=== PATIENT | male | born 1965 | race Caucasian/White ===

== ENCOUNTER 2023-07-09 12:31 | Observation (INO) | payer BC ==
--- OUTSIDE RECORDS SUMMARY | 2023-07-09 12:33 | XMS REPORT | Continuity of Care Document ---
Author Name Unknown Address [address] [facility] [address] [place] [address] [facility] Address [address] [facility] [address] [place] [address] Care Team Providers Care Force Variation Equipment Tender Name Role Phone Perico Dan Attending Clinician Unavailable Perico Dan Admitting Clinician Unavailable Payers Payer Name Policy Type Policy Number Effective Date Expirati on Date Source Allergies, Adverse Reactions, Alerts Allergy Name Allergy Type Status Severity Reaction(s) Onset Date Inactive Date Treating Clinician Comments Source No Known Allergie s DA Active U 12-02 00:00: 00 [facility] Procedures Procedure Date / Time Performed Performing Clinicia n Source [id number] 2022-12-04 00:00:00 [facility] [id number] 2022-12-04 00:00:00 [facility] Encounters Start Date/Time End Date/Time Encounter Type Admission Type Attending Clinicians Care Facility Care Department Encounter ID Source 2022-12-04 09:45:00 2022-12-05 09:32:00 Inpatient EL Perico Dan [facility] MEDI.01 [id number] [facility] Results Test Description Test Time Test Comments Results Result Co mments Source CBC W/AUTO [id number] 04:03:00* Test Item Value Reference Range Interpretation Comme nts WHITE BLOOD CELL (test code = WBC) 6.9 K/mm3 3.5-11.0 N RED BLOOD CELL (test code = RBC) 4.79 M/mm3 4.70-6.10 N HEMOGLOBIN (test code = HGB) 13.9 G/DL 12.3-15.9 N HEMATOCRIT (test code = HCT) 42.3 % 35.8-46.7 N MEAN CELL VOLUME (test code = MCV) 88.3 Fl 86.3-98.9 N MEAN CELL HGB (test code = MCH) 29.0 pg 28.9-34.4 N MEAN CELL HGB CONCETRATION (test code = MCHC) 32.9 G/DL 32.1-34.5 N RED CELL DISTRIBUTION WIDTH (test code = RDW) 13.2 SD 11.5-14.5 N PLATELET COUNT (test code = PLT) 193 K/mm3 150-450 N MEAN PLATELET VOLUME (test c ode = MPV) 11.30 fL 7.0-9.6 H NEUTROPHIL % (test code = NT%) 60.6 % 40-76 IMMATURE GRANULOCYTE % (test code = IG%) 0.3 % 0.0-5.0 N LYMPHOCYTE % (test code = LY%) 20.6 % 20.5-51.1 N MONOCYTE % (test code = MO%) 11.2 % 1.7-9.3 H EOSINOPHIL % (test code = EO%) 6.7 % 0.0-6.0 H BASOPHIL % (test code = BA%) 0.6 % 0.0-2.0 N NUCLEATED RBC % (test code = NRBC%) 0.0 /100WBC% 0.0-1.0 N NEUTROPHIL # (test code = NT#) 4.2 K/mm3 1.8-7.6 N IMMATURE GRANULOCYTE # (test code = IG#) 0.02 x10 3/uL 0.00-0.03 N LYMPHOCYTE # (test code = LY#) 1.4 K/mm3 0.6-3.0 N MONOCYTE # (test code = MO#) 0.8 K/mm3 0.2-1.5 N EOSINOPHIL # (test code = EO#) 0.5 K/mm3 0.0-0.4 H BASOPHIL # (test code = BA#) 0.0 K/mm3 0.0-0.2 N NUCLEATED RBC # (test code = NRBC#) 0.0 K/mm3 0.00-0.01 N MANUAL DIFF REQUIRED (test c ode = MDIFF) NO DIFF/SCN CRITERIA - XR CHEST 1 [id number] 01:51:00 [facility] 1965 Sex: M Name: HEAVEN OLIVERA [facility] : 1965 Age/S: 57 / M [id number] [address] [place] Unit #: [id number] Loc: [place] [address] Phys: Ira Huggins MD Cardiology Acct: [id number] Dis Date: Status: ADM IN PHONE #: [phone] Exam Date: 12/05/20225 FAX #: Reason: Post implanted device EXAMS: CPT: [id number] XR CHEST 1 V [id number] Fluoro Time: DAP (Gy m2): Air Kerma (mGy): EXAMINATION: - XR CHEST 1 V CLINICALINDICATION: Male, 57 years year old with Post implanted device COMPARISON: Chest December 04, 2022 FINDINGS: Single view(s) of the chest submitted. Support Devices: Left-sided single-lead defibrillator is present. Heart: Cardiac silhouette is normal in size. Mediastinum: Mediastinal contours are normal. Lungs: Pulmonary vessels are normal in size. Lungs are well aerated and clear. Pleura: No pleural effusion is identified. No pneumothorax is present. Bones: Visualized skeleton is normal. IMPRESSION: No acute cardiopulmonary disease. at 0151 Reported and signed by: Vignesh Pimentel M.D. CC: Ira Younger Cardiology Dre ARREAGA PAGE 1 Signed Report Name: HEAVEN OLIVERA [place] : 1965 Age/S: 57 / M [id number] [address] [place] Unit #:[id number] Loc: [place] [address] Phys: Ira Huggins MD Cardiology Acct: [id number] Dis Date:Status: ADM IN PHONE #: [phone] Exam Date: 12/05/2022 0025 FAX #: Reason: Post implanted device EXAMS: CPT: [id number] XR CHEST 1 V 47776 Fluoro Time: DAP (Gy m2): Air Kerma (mGy): (Continued) Technologist: Joya Celestin Trnmeb Date/Time: 12/05/2022 (015) [id number] Orig Print D/T: S: 12/05/2022 (0154) PAGE 2 Signed Report- XR CHEST 1 [id number] 14:40:00 [facility] 1965 Sex: M Name: HEAVEN OLIVEAR [place] : 1965 Age/S: 57 / M [address] [address] [place] [place] Unit #: [id number] Loc: [place] [address] Phys: Ira Huggins MD Cardiology Acct: [id number] Dis Date: Status: ADM IN PHONE#: [phone] Exam Date: 12/04/2022 1418 FAX #: Reason: Post implanted device EXAMS: CPT: [id number] XR CHEST 1 V 22882 Fluoro Time: DAP (Gy m2): Air Kerma (mGy): EXAM: - XR CHEST 1 V INDICATION: Post implanted device Technique: Frontal view Location: T18 Findings and impression: The patient is post placement of left pacemaker. The leads/wire projects at the right ventricle. No pneumothorax seen. No pleural effusion seen. Cardiomediastinal silhouette appears unremarkable. Osseous structures appear unremarkable. at 1440 Reported andsigned by: Chucho Rubio M.D. CC: Ira Younger Cardiology Dre ARREAGA PAGE 1 Signed Report Name: GERARDO OLIVERA : 1965 Age/S: 57 / M [address] [address] [place] [place] Unit #: [id number] Loc: [id number] Phys: Ira Huggins MD Cardiology Acct: [id number] Dis Date: Status: ADM IN PHONE #: Exam Date: 12/04/2022 1416 FAX #: Reason: Post implanted device EXAMS: CPT: [id number] XR CHEST 1 V 30786 Fluoro Time: DAP (Gy m2): Air Kerma (mGy): (Continued) Technologist: Cate Mccain RT(R) Trnscb Date/Time: 12/04/2022 (1440) [id number] Orig Print D/T: S: 12/04/2022 (2955) PAGE 2 Signed Report PROTHROMBIN [id number] 11:39:00* Test Item Value Reference Range Interpretation Comme nts PT PATIENT (test code = PTP) 12.5 SECONDS 9.3-12.9 N INTERNATIONAL NORMAL RATIO (test code = INR) 1.12 INR Unit 0.8-1.2 N TARGET INR BY INDICATION Indication INR1. Prophylaxis of venous thrombosis 2.0 - 3.0 (orthopedic surgery), Prophylaxis of venous thrombosis (other than high-risk surgery), Treatment of Deep Vein Thrombosis/Pulmonary Embolism, Prevention of systemic embolism - Tissue heart valves, Acute Myocardial Infarction (to prevent systemic embolism), Valvular heart disease, Acute Myocardial Infarction (to prevent systemic embolism), Valvular heart disease, Atrial Fibrillation, Bileaflet mechanical valve in aortic position.2. Mechanical prosthetic valves (high risk), 2.5 - 3.5 Presence of Lupus Anticoagulant or Antiphospholipid Antibodies, Prevention of systemic embolism - Acute Myocardial Infarction (to prevent recurrent infarct). THROMBOPLASTIN TIME [id number] 11:39:00* Test Item Value Reference Range Interpretation Comme nts THROMBOPLASTIN TIME PARTIAL (test code = PTT) 35.2 SECONDS 26-35 H CBC W/AUTO [id number] 11:17:00* Test Item Value Reference Range Interpretation Comme nts WHITE BLOOD CELL (test code = WBC) 4.9 K/mm3 3.5-11.0 N RED BLOOD CELL (test code = RBC) 5.29 M/mm3 4.70-6.10 N HEMOGLOBIN (test code = HGB) 15.2 G/DL 12.3-15.9 N HEMATOCRIT (test code = HCT) 45.0 % 35.8-46.7 N MEAN CELL VOLUME (test code = MCV) 85.1 Fl 86.3-98.9 L MEAN CELL HGB (test code = MCH) 28.7 pg 28.9-34.4 L MEAN CELL HGB CONCETRATION (test code = MCHC) 33.8 G/DL 32.1-34.5 N RED CELL DISTRIBUTION WIDTH (test code = RDW) 13.2 SD 11.5-14.5 N PLATELET COUNT (test code = PLT) 224 K/mm3 150-450 N MEAN PLATELET VOLUME (test c ode = MPV) 11.80 fL 7.0-9.6 H NEUTROPHIL % (test code = NT%) 51.7 % 40-76 N IMMATURE GRANULOCYTE % (test code = IG%) 0.4 % 0.0-5.0 N LYMPHOCYTE % (test code = LY%) 25.6 % 20.5-51.1 N MONOCYTE % (test code = MO%) 12.6 % 1.7-9.3 H EOSINOPHIL % (test code = EO%) 8.9 % 0.0-6.0 H BASOPHIL % (test code = BA%) 0.8 % 0.0-2.0 N NUCLEATED RBC % (test code = NRBC%) 0.0 /100WBC% 0.0-1.0 N NEUTROPHIL # (test code = NT#) 2.5 K/mm3 1.8-7.6 N IMMATURE GRANULOCYTE # (test code = IG#) 0.02 x10 3/uL 0.00-0.03 N LYMPHOCYTE # (test code = LY#) 1.3 K/mm3 0.6-3.0 N MONOCYTE # (test code = MO#) 0.6 K/mm3 0.2-1.5 N EOSINOPHIL # (test code = EO#) 0.4 K/mm3 0.0-0.4 N BASOPHIL # (test code = BA#) 0.0 K/mm3 0.0-0.2 N NUCLEATED RBC # (test code = NRBC#) 0.0 K/mm3 0.00-0.01 N MANUAL DIFF REQUIRED (test c ode = MDIFF) NO DIFF/SCN CRITERIA COMPREHENSIVE METABOLIC [id number] 10:28:00* Test Item Value Reference Range Interpretation Comme nts SODIUM (test code = NA) 139 mmol/L 134-147 N POTASSIUM (test code = K) 4.0 mmol/L 3.4-5.0 N CHLORIDE (test code = CL) 112 mmol/L 100-108 H CARBON DIOXIDE (test code = CO2) 25 mmol/L 21-32 N ANION GAP (test code = GAP) 2.0 GAP calc 4.0-15.0 L GLUCOSE (test code = GLU) 94 MG/DL 70-110 N BLOOD UREA NITROGEN (test code = BUN) 23 MG/DL 7-18 H GLOMERULAR FILTRATION RATE (test code = GFR) >=60 max estimate estGFR >60 The Glomerular Filtration Rate is a calculated parameterbased on serum Creatinine, patient age and sex. GFR valuesless than 60 mL/min/1.73 square meters are indicative ofChronic Kidney Disease. Values less than 15 mL/min/1.73square meters indicate Kidney failure. The calculation forGFR is based on the CKD-EPI (202) calculation. This formulais race indifferent and is the recommended formula for GFRby the National Kidney Foundation for Adults.The GFR will not calculate if the sex is unknown or if thepatient's age is <18 years. CREATININE (test code = CREAT) 1.1 MG/DL 0.8-1.3 N TOTAL PROTEIN (test code = PROT) 7.2 G/DL 6.4-8.2 N ALBUMIN (test code = ALB) 3.7 G/DL 3.4-5.0 N GLOBULIN (test code = GLOB) 3.5 GM/dL ALBUMIN/GLOBULIN RATIO (test code = A/G) 1.1 RATIO 1.2-2.2 L CALCIUM (test code = CA) 8.8 MG/DL 8.5-10.1 N BILIRUBIN TOTAL (test code = BILT) 0.70 MG/DL 0.2-1.2 N SGOT/AST (test code = AST) 18 Unit/L 15-37 N SGPT/ALT (test code = ALT) 25 Unit/L 12-78 N ALKALINE PHOSPHATASE TOTAL (test code = ALKP) 49 Unit/L 50-136 L LIPID PROFILE (CORONARY RISK)2022-12-04 10:28:00* Test Item Value Reference Range Interpretation Comme nts TRIGLYCERIDES (test code = TRIG) 91 MG/DL 0-150 N CHOLESTEROL (test code = CHOL) 148 MG/DL 133-200 N CHOLESTEROL/HDL RATIO (test code = CHOLHDL) 2.96 RATIO See_Comment RISK ASSOCIATED WITH CHOL/HDL RATIOS: RISK MALE FEMALE1/2 AVERAGE 3.43 3.27AVERAGE 4.97 4.442X AVERAGE 9.55 7.053X AVERAGE 23.39 11.04 NOTE THAT THE REFERENCE VALUE IS RELATED TO RISK LEVELS ASRECOMMENDED BY THE [facility]ATIONAL [facility]G, AND [facility]. [Automated message] The system which generated this result transmitted reference range: 0-. The reference range was not used to interpret this result as normal/abnormal. HDL CHOLESTEROL (test code = HDL) 50 MG/DL 40-59 N NON-HDL CHOLESTEROL (test code = NHDL) 98 mg/dL <130 LIPOPROTEIN LDL (test code = LDL) 81 MG/DL 0-129 N <100 QCFTZEO35 0 - 129 NEAR OPTIMAL/ABOVE IQENFKD667 - 159 HMKOGILNHN937 - 189 HIGH>OR= 190 VERY HIGHNOTE THAT GUIDELINES ARE PROVIDED BY NATIONAL CHOLESTEROLEDUCATION PROGRAM ADULT TREATMENT PANEL III LDL/HDL (test code = LDL/HDL) 1.62 Ratio See_Comment N [Automated messa ge] The system which generated this result transmitted reference range: 1.48-3.22 Avg. The reference range was not used to interpret this result as normal/abnormal. [id number] 10:28:00* Test Item Value Reference Range Interpretation Comme nts MAGNESIUM (test code = MAG) 2.0 MG/DL 1.8-2.4 N Notes Date/Time Note Provider Source 2022-12-05 08:26:00 [id number]/ [id number]+NDnA2w89+KaL1EmCoA6OxG gDFiV8NogvtmtJVHuAkUSQR6cC+6890-64-11D08:26:00 [facility] ([facility])Hospitalist Discharge SummaryREPORT#:[id number] REPORT STATUS: SignedDATE:12/05/22 TIME:825 PATIENT: HEAVEN OLIVERA UNIT #: [id number]#: [id number] [address] AGE: 57 SEX: M ATTEND: Perico Dan [facility] AUTHOR: Perico Dan MD * ALL edits or amendments must be made on the electronic/computer document * General InformationDischarge date: 12/05/22Discharge diagnosis:Sick sinus syndromeChronic atrial fibrillation with slow ventricular responseSymptomatic bradycardiaStatus post pacemaker placementHyperlipidemiaHospital course:57-year-old male with past medical history of chronic atrial fibrillation with slow ventricular response, symptomatic bradycardia, hyperlipidemia, morbid obesity was admitted for symptomatic sick sinus syndrome and chronic atrial fibrillation and underwent pacemaker placement by Dr. Huggins and was admitted for further managementPatient denies any chest pain or shortness of breathDenies any fever or chills Sick sinus syndromeSymptomatic bradycardiaChronic atrial fibrillation with slow ventricular responseStatus post pacemaker placementAppreciated from cardiologyMonitor on telemetryElectrolytes monitored and replace accordingly HyperlipidemiaContinue statin ObesityAdvise lifestyle modification Patient responded well to the treatment and is being discharged home today in a stable condition with and advised to follow-up with PCP in 1 week and also with cardiology in 1 to 2 weeks Med Rec Med RecDischarge meds:Continue taking these medications:RIVAROXABAN (XARELTO) 20 MG TAB 20 MILLIGRAM ORAL DAILY. FENOFIBRATE (FENOFIBRATE) 145 MG TAB 145 MILLIGRAM ORAL DAILY. PRAVASTATIN (PRAVACHOL) 40 MG TAB 40 MILLIGRAM ORAL DAILY. MULTIVITAMIN (MULTIPLE VITAMIN) 1 TAB TAB 1 TABLET ORAL DAILY. OMEGA-3 FATTY ACIDS (FISH OIL) 1,000 MG CAP 1,000 MILLIGRAM ORAL DAILY. ObjectiveVS/I OLast Documented: Result Date Time Pulse Ox 96 12/05 0700 B/P 122/79 12/05 0700 B/P Mean 93 12/05 0700 Temp 97.8 12/05 0700 Pulse 55 12/05 0700 Resp 14 12/05 0700 O2 Delivery Room air 12/04 1552 Physical ExamGeneral appearance: alert, awake, orientedHEENT : normocephalic ,AtraumaticEyes: Eyes normal inspection.ENT: Dry mucous membranes present.Neck: Normal inspection. Neck supple.CVS: Normal heart rate and rhythm. Heart sounds normal.Respiratory: No respiratory distress. Breath sounds normal.Abdomen: Soft and nontender.Genitourinary: no bladder distentionBack: Normal inspection.Skin: Skin warm. Normal skin color. No rash.Extremities: No lower extremity edema.Neuro: Oriented X 3. No motor deficitNo generalized lymph adenopathyPsych normal affect Discharge Instructions PCPDischarge to: Home/Self CareAdditional Discharge Routines: PCP Follow-UpDiet: Resume Home Diet/FeedsDischarge management: greater than 30 mins Follow-up AppointmentsPCP follow-up: PCP: Ira Huggins MD Cardiology PCP follow up timeframe: In 1-2 weeks at 1423 RPT #: [id number] OF REPORT DSDischarge glhynjp0353-05-68G35:26:00L.[id number] ailable for patient kcxrSJJYVIWZKNKALL7829-81-95K39:23:14 [facility] 2022-12-05 07:49:00 [id number] o6iBwXjcJP1Mg3JcwB9AE7gD71/We 6wBs/Oid9tQaM8nDC3/ACA4GNvU7184-66-92Q91:49:45292 5-0006 [facility] [address] [place] [address] PATIENT NAME: HEAVEN OLIVERA ADMIT DATE: 12/04/22ACCOUNT NO: [id number] ROOM NO: [facility] AGE: 57 REPORT TYPE: eELECTROCARDIOGRAM SEX: M ADMITTING PHYSICIAN: Ira Huggins MDATTENDING PHYSICIAN: Ira Huggins MD Order:[id number] Reason : S/P PPI, AFib Test Date/Time Stamp:TueDec 05 2022 07:49:11Blood Pressure : / mmHGVent. Rate : 061 BPM Atrial Rate : 258 BPM P-R Int : 000 ms QRS Dur : 090 ms QT Int : 396 ms P-R-T Axes : 000 003 018 degrees QTc Int : 398 ms Atrial fibrillation with occasional ventricular-paced complexesAbnormal ECGWhen compared with ECG of 04-DEC-2022 14:12,premature ventricular complexes are no longer presentVent. rate has increased BY 10 BPMConfirmed by IRA HUGGINS ([id number]) on 12/05/2022 10:23:37 AM Referred By: Ira Huggins Confirmed by:IRA HUGGINS at 1023 PATIENT NAME: HEAVEN OLIVERA .[id number] AVAvailable for patient amtgVDDZQAHGFVIVUR9916-68-78G75:24:15 [facility] 2022-12-04 18:22:00 [id number] jw/Avelina/5ikzo/hmXREBPAcz5SNMas 3u0lAtsvuWdyaN3ejYb16zCNh3L8227-21-31B24:22:00 [facility] ([facility])Hospitalist History PhysicalREPORT#:[id number] REPORT STATUS: SignedDATE:12/04/22 TIME:1821 PATIENT: HEAVEN OLIVERA UNIT #: [id number]#: [id number] ROOM[facility]BED: [facility]8-1DOB: [birth year] AGE: 57 SEX: M ATTEND: Perico Dan AUTHOR: Perico Dan MD * ALL edits or amendments must be made on the electronic/computer document * History of Present Illness HPIChief complaint:S/p Pacemaker placememnt by Dr HugginsHPRoger:57-year-old male with past medical history of chronic atrial fibrillation with slow ventricular response, symptomatic bradycardia, hyperlipidemia, morbid obesity was admitted for symptomatic sick sinus syndrome and chronic atrial fibrillation and underwent pacemaker placement by Dr. Huggins and was admitted for further managementPatient denies any chest pain or shortness of breathDenies any fever or chills History Past Medical Surgical HxAdditional medical history:Chronic atrial fibrillation, bradycardia, sick sinus syndromeAdditional surgical history:Status post pacemaker placement Family HistoryFamily history:Reports: Hypertension. Social HistorySmoking status for patients 13 years old or older: Never Smoker Medication/Allergy-Vaccine HxMedications:Home Medications:RIVAROXABAN (XARELTO) 20 MG PO DAILY FENOFIBRATE 145 MG PO DAILY PRAVASTATIN (PRAVACHOL) 40 MG PO DAILY MULTIVITAMIN (MULTIPLE VITAMIN) 1 TAB PO DAILY OMEGA-3 FATTY ACIDS (FISH OIL) 1,000 MG PO DAILY Allergies:Coded Allergies:No Known Allergies (12/02/22) Review of Systems Free Text ROS NotesFree Text ROS Notes:Constitutional:Reports: generalized weakness. Skin:Denies: rash. Allergy/Immun:Denies: rhinorrhea, sneezing. Eyes:Denies: visual loss/blurred. ENT:Denies: earache, nasal congestion. Respiratory:Denies: non productive cough. Cardiovascular:Denies: chest pain, palpitations. GI:Denies: diarrhea, nausea. :Denies: dysuria. Musculoskeletal:Reports: arthritis. Denies: extremity pain. Heme:Denies: bleeding. Endocrine:Denies: polydipsia. Neuro:Reports: dizziness, gait problem, lightheaded, spinning sensation. Psych:Reports: anxiety. All systems rev neg: except as noted OBJECTIVEVS/I O:Vital Signs Date Temp Pulse Resp B/P B/P Mean Pulse Ox FiO2 12/04 97.5-97.7 48-55 14-20 126-143/74-83 97.1-101.4 94-100 Last Documented: Result Date Time Pulse Ox 100 12/04 1552 B/P 126/83 12/04 1552 B/P Mean 97.1 12/04 1552 O2 Delivery Room air 12/04 1552 Temp 97.7 12/04 155 Pulse 50 12/04 1552 Resp 14 12/04 155 Patient Weight and BMI Weight (kg): 130.000 BMI: 35.8 Medications:Active Meds + DC'd Last 24 HrsPravastatin Sodium (PRAVACHOL) 40 MG DAILY 1700 PO Acetaminophen (TYLENOL) 650 MG Q4H PRN PRN PO Cefazolin Sodium (KEFZOL) 1 GM Q8H IV Sterile Water (WATER FOR INJECTION) 10 MLHydrocodone Bitart/Acetaminophen (NORCO 5/325) 1 TAB Q4H PRN PRN PO Ondansetron HCl (ZOFRAN ODT) 4 MG Q8H PRN PRN PO Sodium Chloride (SODIUM CHLORIDE) SALINE FLUSH ASDIR PRN IV Midazolam HCl (VERSED) 0 .STK-MED ONE .ROUTE (DC) Cefazolin Sodium (KEFZOL) 0 .STK-MED ONE .ROUTE (DC) Gentamicin Sulfate (GARAMYCIN) 0 .STK-MED ONE .ROUTE (DC) Lidocaine HCl (lidocaine HCL) 0 .STK-MED ONE .ROUTE (DC) Midazolam HCl (VERSED) 0 .STK-MED ONE .ROUTE (DC) Fentanyl Citrate (SUBLIMAZE) 0 .STK-MED ONE .ROUTE (DC) Diazepam (VALIUM) 5 MG ONCALL PO (CKD) Diphenhydramine HCl (BENADRYL) 25 MG ONCALL PO (CKD) Sodium Chloride (0.9% Sodium Chloride) 1,000 ML ASDIR IV ResultsFindings/Data:Laboratory Tests: 12/04 0907 Chemistry Sodium (134 - 147 mmol/L) 139 Potassium (3.4 - 5.0 mmol/L) 4.0 Chloride (100 - 108 mmol/L) 112 H Carbon Dioxide (21 - 32 mmol/L) 25 Anion Gap (4.0 - 15.0 GAP calc) 2.0 L BUN (7 - 18 MG/DL) 23 H Creatinine (0.8 - 1.3 MG/DL) 1.1 Glomerular Filtr Rate (>60 estGFR) >=60 max estimate Glucose (70 - 110 MG/DL) 94 Calcium (8.5 - 10.1 MG/DL) 8.8 Magnesium (1.8 - 2.4 MG/DL) 2.0 Total Bilirubin (0.2 - 1.2 MG/DL) 0.70 AST (15 - 37 Unit/L) 18 ALT (12 - 78 Unit/L) 25 Total Alk Phosphatase (50 - 136 Unit/L) 49 L Total Protein (6.4 - 8.2 G/DL) 7.2 Albumin (3.4 - 5.0 G/DL) 3.7 Globulin (GM/dL) 3.5 Albumin/Globulin Ratio (1.2 - 2.2 RATIO) 1.1 L Triglycerides (0 - 150 MG/DL) 91 Cholesterol (133 - 200 MG/DL) 148 LDL Cholesterol Measurd (0 - 129 MG/DL) 81 Non-HDL Cholesterol (<130 mg/dL) 98 HDL Cholesterol (40 - 59 MG/DL) 50 LDL/HDL Ratio (1.48 - 3.22 Avg Ratio) 1.62 Cholesterol/HDL Ratio (0 RATIO) 2.96 Coagulation INR (0.8 - 1.2 INR Unit) 1.12 PTT (Nelson) (26 - 35 SECONDS) 35.2 H PT Patient/Control Mix (9.3 - 12.9 SECONDS) 12.5 Hematology WBC (3.5 - 11.0 K/mm3) 4.9 RBC (4.70 - 6.10 M/mm3) 5.29 Hgb (12.3 - 15.9 G/DL) 15.2 Hct (35.8 - 46.7 %) 45.0 MCV (86.3 - 98.9 Fl) 85.1 L MCH (28.9 - 34.4 pg) 28.7 L MCHC (32.1 - 34.5 G/DL) 33.8 RDW (11.5 - 14.5 SD) 13.2 Plt Count (150 - 450 K/mm3) 224 MPV (7.0 - 9.6 fL) 11.80 H Neut % (Auto) (40 - 76 %) 51.7 Lymph % (Auto) (20.5 - 51.1 %) 25.6 Putnam % (Auto) (1.7 - 9.3 %) 12.6 H Eos % (Auto) (0.0 - 6.0 %) 8.9 H Baso % (Auto) (0.0 - 2.0 %) 0.8 Neut # (Auto) (1.8 - 7.6 K/mm3) 2.5 Lymph # (Auto) (0.6 - 3.0 K/mm3) 1.3 Putnam # (Auto) (0.2 - 1.5 K/mm3) 0.6 Eos # (Auto) (0.0 - 0.4 K/mm3) 0.4 Baso # (Auto) (0.0 - 0.2 K/mm3) 0.0 Abs Immat Gran (auto) (0.00 - 0.03 x10 3/uL) 0.02 Add Manual Diff (CRITERIA DIFF/SCN) NO Immature Gran % (0.0 - 5.0 %) 0.4 Nucleated RBC % (0.0 - 1.0 /100WBC%) 0.0 Laboratory Tests 12/04/22 0907:[Embedded Image Not Available] Radiology data:Recent Impressions:RADIOLOGY - XR CHEST 1 V 12/04 1415 Report Impression - Status: SIGNED Entered: 12/04/2022 1444 impression:The patient is post placement of left pacemaker. The leads/wireprojects at the right ventricle. No pneumothorax seen. No pleuraleffusion seen. Cardiomediastinal silhouette appears unremarkable.Osseous structures appear unremarkable.Impression By: SenthilAHJenelle Rubio M.D. Free Text PE NotesFree Text PE Notes:Physical ExamGeneral appearance: alert, awake, orientedHEENT : normocephalic ,AtraumaticEyes: Eyes normal inspection.ENT: Dry mucous membranes present.Neck: Normal inspection. Neck supple.CVS: Normal heart rate and rhythm. Heart sounds normal.Respiratory: No respiratory distress. Breath sounds normal.Abdomen: Soft and nontender.Genitourinary: no bladder distentionBack: Normal inspection.Skin: Skin warm. Normal skin color. No rash.Extremities: No lower extremity edema.Neuro: Oriented X 3. No motor deficitNo generalized lymph adenopathyPsych normal affect Diagnosis, Assessment PlanFree Text A P:Sick sinus syndromeSymptomatic bradycardiaChronic atrial fibrillation with slow ventricular responseStatus post pacemaker placementAppreciated from cardiologyMonitor on telemetryElectrolytes monitored and replace accordingly HyperlipidemiaContinue statin ObesityAdvise lifestyle modification GI/DVT prophylaxisAdvanced directive full code at 1421 RPT #: [id number] OF REPORT HPHistory and physical fdmhsihwgil1552-82-92J26:22:00L.[id number] AVAvailable for patient qztwAICEQKWFMXJSSV1797-07-40J75:21:33 [facility] 2022-12-04 14:12:00 [id number] Iqv9qUaXZzVLziN734yGSRYYBNjOw uQhXKIfQ3ATPR5q7fPm6YjYijgy3902-86-32S25:12:43076 4-0012 [facility] [id number] [place] [address] PATIENT NAME: HEAVEN OLIVERA ADMIT DATE: 12/04/22ACCOUNT NO: [id number] ROOM NO: [facility] AGE: 57 REPORT TYPE: eELECTROCARDIOGRAM SEX: M ADMITTING PHYSICIAN: Ira Huggins MDATTENDING PHYSICIAN: Ira Huggins MD Order:[id number] Reason : s/p pacemaker Test Date/Time Stamp:TueDec 04 2022 14:12:29Blood Pressure : / mmHGVent. Rate : 051 BPM Atrial Rate : 049 BPM P-R Int : 000 ms QRS Dur : 200 ms QT Int : 532 ms P-R-T Axes : 000 -72 061 degrees QTc Int : 490 ms Ventricular-paced rhythm with occasional premature ventricular complexesAbnormal ECGWhen compared with ECG of 04-DEC-2022 09:31,Electronic ventricular pacemaker has replaced Atrial fibrillationConfirmed by IRA HUGGINS ([id number]) on 12/04/2022 3:04:14 PM Referred By: Ira Huggins Confirmed by:IRA HUGGINS at 1504 PATIENT NAME: HEAVEN OLIVERA .[id number] AVAvailable for patient [id number]:04:33 [facility] 2022-12-04 13:58:00 [id number]//[id number] 4-0026 [facility] [address] [place] [address] PATIENT NAME: HEAVEN OLIVERA ADMIT DATE: 12/04/22ACCOUNT NO: [id number] ROOM NO: [facility] AGE: 57 REPORT TYPE: OPERATIVE REPORT SEX: M ADMITTING PHYSICIAN: Ira Huggins MD CardiologyATTENDING PHYSICIAN: Ira Huggins MD Cardiology OPERATION DATE: 12/04/2022 DOFFER: Ira Huggins MD PREOPERATIVE DIAGNOSIS: 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 TITLE OF PROCEDURE: Single-chamber permanent pacemaker, MRI compatible pacemaker. ESTIMATED BLOOD LOSS: Minimal. COMPLICATIONS: None. CONTRAST: None. ANESTHESIA: Conscious sedation with Versed and fentanyl, 1% lidocaine for localanesthesia. FINAL DIAGNOSIS: Successful single-chamber MRI compatible permanent pacemaker implantation. DISPOSITION: Observation overnight. Dictated By: Ira Huggins MD Date Dictated: 12/04/2022 13:58:10Date Transcribed: 12/04/2022 17:56:14SFD/TULShwetab #: [id number] ID: [id number] by Ira Huggins MD On 12/05/2022 07:30:34 AM PATIENT NAME: HEAVEN OLIVERA at 0730 PATIENT NAME: HEAVEN OLIVERA [id number]:56:00L.[id number] lable for patient [id number]:31:16 [facility] 2022-12-04 09:31:00 [id number]/[id number] 4-[address] [address] PATIENT NAME: HEAVEN OLIVERA ADMIT DATE: 12/04/22ACCOUNT NO: [id number] ROOM NO: [facility] AGE: 57 REPORT TYPE: eELECTROCARDIOGRAM SEX: M ADMITTING PHYSICIAN: Ira Huggins MDATTENDING PHYSICIAN: Ira Huggins MD Order:[id number] Reason : pre op Test Date/Time Stamp:TueDec 04 2022 09:31:54Blood Pressure : / mmHGVent. Rate : 043 BPM Atrial Rate : 000 BPM P-R Int : 000 ms QRS Dur : 082 ms QT Int : 436 ms P-R-T Axes : 000 -01 004 degrees QTc Int : 368 ms Atrial fibrillation with slow ventricular responseInferior infarct , age undeterminedAbnormal ECGNo previous ECGs availableConfirmed by IRA HUGGINS ([id number]) on 12/04/2022 11:19:57 AM Referred By: Ira Huggins Confirmed by:IRA HUGGINS at 1119 PATIENT NAME: HEAVEN OLIVERA .[id number] AVAvailable for patient [id number]:20:21 [facility] 2022-12-03 07:26:00 [id number] 3-[address] [address] PATIENT NAME: HEAVEN OLIVERA ADMIT DATE: ACCOUNT NO: [id number] ROOM NO: AGE: 57 REPORT TYPE: PREOP HP REPORT SEX: M ADMITTING PHYSICIAN: ATTENDING PHYSICIAN: Ira Huggins MD Cardiology ADMISSION DATE: 12/04/2022 12:30:00 DOFFER: Ira Huggins MD REASON FOR ADMISSION: Single chamber permanent pacemaker implantation for symptomatic sick sinus syndrome and chronic atrial fibrillation. HISTORY OF PRESENT ILLNESS: Heaven is a 57-year-old patient who I started seeing in my office since 2017. The patient has now chronic atrial fibrillation with slow ventricular response, on no culprit medications. He has significant bradycardia with heart rates going down to 19 on a 24-hour monitor, average heart rate of 58. He had several pauses, the longest being 3.7 seconds. Given the evidence of symptomatic bradycardia with chronic atrial fibrillation and theabove-mentioned pauses, the patient is here for single chamber permanent pacemaker implantation. The patient has no history of active coronary artery disease. He has had echocardiogram showing hypertensive heart disease with mildmitral regurgitation. He had a negative nuclear stress test in 2017. On followup cultures, he has been getting worsening bradycardia on no medications and the pauses have been getting longer and longer. The patient is experiencingworsening fatigue and dyspnea. No dizziness or passing out. No angina or congestive heart failure or TIAs. PAST MEDICAL HISTORY: Remarkable for hyperlipidemia, morbid obesity and allergies. The patient has had negative workup for sleep apnea. PAST SURGICAL HISTORY: He has had wisdom teeth removal and jaw surgery. ALLERGIES: NO KNOWN DRUG ALLERGIES. MEDICATIONS: He has been taking pravastatin 40 mg daily, fenofibrate 145 mg daily, fish oil, Xarelto is on hold and inhalers. SOCIAL HISTORY: There is no history of smoking, alcohol or street drug use. FAMILY HISTORY: Positive for atherosclerotic cardiovascular disease. REVIEW OF SYSTEMS: Remarkable for the above in addition to blurred vision at times, worsening fatigue. No acute GI or symptoms. No TIAs or strokes. PHYSICAL EXAMINATION: PATIENT NAME: HEAVEN OLIVERA GENERAL: Reveals a pleasant, middle-aged male in no acute distress.VITAL SIGNS: Blood pressure 118/83, pulse in the 50s, irregular, respiratory rate 16 and unlabored, temperature afebrile.HEAD: Atraumatic, normocephalic.EYES AND ENT examination within normal for age.NECK: Supple. No jugular venous distention, bruits or lymphadenopathy. Normalupstroke.LUNGS: Clear and resonant.HEART: Irregular rate and rhythm with 2/6 systolic ejection murmur at the left lower sternal border. No gallops. The heart is bradycardic.ABDOMEN: Soft, obese, no tenderness, no organomegaly, no masses or bruits.EXTREMITIES: 2+ distal pulses. No edema, cyanosis or clubbing.NEUROLOGIC: Alert and oriented x3. Examination appears to be nonfocal. LABORATORY DATA: Pending. Noninvasive cardiovascular workup enclosed. IMPRESSION: This is a 57-year-old patient with now chronic atrial fibrillation,symptomatic bradycardia, sick sinus syndrome, long pauses and heart rates going down to 19 at night and pauses up to 3.7 seconds. The patient is here for single chamber permanent pacemaker implantation since there are no reversible causes of his sick-sinus syndrome. The patient is otherwise stable from the cardiac standpoint. The patient's father has had received permanent pacemaker implantation in the past. The patient is right handed, so we will proceed with a single chamber permanent pacemaker implantation on the left side. PLAN: The recommendation is to proceed with the above. The risks and benefits of the planned procedures were discussed in detail with the patient and available family members and he is willing to proceed. Rest as per orders. Dictated By: Ira Huggins MD Date Dictated: 12/03/2022 07:26:40Date Transcribed: 12/03/2022 09:26:04SFD/SYEJob #: [id number] ID: [id number] by Ira Huggins MD On 12/03/2022 05:32:01 PM at 0532 PATIENT NAME: HEAVEN OLIVERA and physical [id number]:26:00L.[id number] VAvailable for patient [id number]:32:53 HCAPM
[2023-07-09 13:20] LABS: Absolute Lymphocytes (CBC) 1.6 K/uL (0.7-4.9); Hematocrit 40.1 % (39.6-49.0); Lymphocytes % 18.7 % (15.3-44.8); MCV 87.3 fL (80-100); Platelets 244 thou/uL (152-406)
[2023-07-09] MEDS ORDERED: MORPHINE 4 MG/ML SYR ONE (13:20)
[2023-07-09] MEDS ORDERED: ONDANSETRON 4 MG/2 ML VIAL ONE (13:20)
[2023-07-09] MEDS ORDERED: LIDOCAINE 1% MPF 5 ML VIAL ONE (13:20)
[2023-07-09 13:32] LABS: Protime INR 1.84
[2023-07-09 13:42] LABS: Albumin 3.1 g/dL (3.4-5.0); Bilirubin Total 0.6 mg/dL (0.2-1.0); Potassium 3.9 mEq/L (3.5-5.1); Protein, Total 7.5 g/dL (6.4-8.2)
--- NOTE | 2023-07-09 14:25 | ER ---
Nurse's Notes [facility] Name: Jayson Pennington Age: 58 yrs Sex: Male : 1965 Arrival Date: 07/09/2023 Time: 12:31 Bed 7 Private MD: Jono Marquis E Diagnosis: Cellulitis left lower extremity;Hematoma to left lower extremity Presentation: 07/09 12:43 Chief complaint: Patient states: "I have an infection to my left leg and the ph antibiotics that I started taking yesterday aren't helping". Coronavirus screen: At this time, the client does not indicate any symptoms associated with coronavirus-19. Ebola Screen: No symptoms or risks identified at this time. Initial Sepsis Screen: Does the patient meet any 2 criteria? No. Patient's initial sepsis screen is negative. Does the patient have a suspected source of infection? No. Patient's initial sepsis screen is negative. Risk Assessment: Do you want to hurt yourself or someone else? Patient reports no desire to harm self or others. Onset of symptoms was July 05, 2023. 12:43 Method Of Arrival: Ambulatory ph 12:43 Acuity: SHEA 3 ph Historical: - Allergies: 12:46 No Known Allergies; ph - Home Meds: 14:20 Xarelto 20 mg oral tablet once [Active]; fenofibrate 150 mg oral capsule once [Active]; aa5 pravastatin oral [Active]; Bactrim DS 800-160 mg Oral tablet 2 times per day [Active]; clindamycin HCl 300 mg Oral capsule 2 times per day [Active]; - PMHx: 14:19 Atrial fibrillation; Bradycardia; Hypercholesterolemia; aa5 - PSHx: 12:46 pacemaker; ph - Immunization history:: Adult Immunizations up to date. - Social history:: Smoking status: Patient denies any tobacco usage or history of. - Family history:: not pertinent. Screenin:22 [facility] ED Fall Risk Assessment (Adult) History of falling in the last 3 months, ap3 including since admission No falls in past 3 months (0 pts). Abuse screen: Denies threats or abuse. Nutritional screening: No deficits noted. Tuberculosis screening: No symptoms or risk factors identified. Assessment: 13:00 General: Appears comfortable, Behavior is calm, cooperative. Pain: Complains of pain in aa5 lateral aspect of left calf Pain currently is 0 out of 10 on a pain scale. Quality of pain is described as aching, tender, throbbing. Neuro: Level of Consciousness is awake, alert, obeys commands, Oriented to person, place, time, situation. Cardiovascular: Heart tones S1 S2 present Rhythm is atrial fibrillation. Respiratory: Airway is patent Respiratory effort is even, unlabored, Respiratory pattern is regular, symmetrical. GI: No signs and/or symptoms were reported involving the gastrointestinal system. : No signs and/or symptoms were reported regarding the genitourinary system. EENT: No signs and/or symptoms were reported regarding the EENT system. Derm: Skin is pink, warm \\T\\ dry. redness noted to left lower extremity, swollen area noted to lateral aspect of left calf, no drainage noted. Musculoskeletal: Range of motion: intact in all extremities. 14:10 Reassessment: I\\T\\D to left lower leg completed by MD, moderate bleeding noted to site. aa5 Left lower leg dressed with gauze and mihir bandage for pressure dressing per MD VO. . 14:10 Reassessment: Patient is alert, oriented x 3, equal unlabored respirations, skin aa5 warm/dry/pink. 15:15 Reassessment: Patient is alert, oriented x 3, equal unlabored respirations, skin aa5 warm/dry/pink. Vital Signs: 12:43 BP 143 / 87; Pulse 89; Resp 18 S; Temp 98.3(O); Pulse Ox 99% on R/A; Weight 122.47 kg ph (R); Height 6 ft. 3 in. (R); Pain 0/10; 14:22 BP 113 / 73; Pulse 62; Pulse Ox 97% on R/A; ap3 12:43 Body Mass Index 33.75 (122.47 kg, 190.5 cm) ph 12:43 Pain Scale: Adult ph ED Course: 12:32 Patient arrived in ED. rg4 12:32 Jono Marquis MD is Private Physician. rg4 12:41 Liu Jimenez MD is Attending Physician. rt 12:45 Triage completed. ph 12:46 Arm band placed on. ph 12:56 Sari Vasques, ARSEN is Primary Nurse. aa5 13:08 Initial lab(s) drawn, by me, sent to lab. First set of blood cultures drawn by me. aa5 13:10 Inserted saline lock: 20 gauge in right forearm, using aseptic technique. aa5 13:18 Second set of blood cultures drawn by me. aa5 14:21 Assist provider with I \\T\\ D: of an abscess on left lower extremity Set up I\\T\\D tray. ap 3 Performed by Liu Jimenez MD Patient tolerated well. 14:22 Patient has correct armband on for positive identification. Bed in low position. Call ap3 light in reach. Side rails up X2. Adult w/ patient. hospice clinical supervisor on. Pulse ox on. NIBP on. 14:23 Vignesh Thomas MD is Hospitalizing Provider. rt 15:15 Provided Education on: need for admission. ap3 15:15 Patient admitted, IV remains in place. ap3 Administered Medications: 13:27 Drug: Ondansetron IVP 4 mg IVP once; over 2 minutes Route: IVP; Site: right antecubital;ap3 14:00 Follow up: Response: No adverse reaction aa5 13:28 Drug: morphine IVP or IV 4 mg IVP once over 4 mins Route: IVP; Infused Over: 4 mins; ap3 Site: right antecubital; 14:00 Follow up: Response: No adverse reaction aa5 13:39 Drug: Lidocaine Infiltration (1 %) 5 ml 5 ml Infiltration once; to bedside {Note: as6 administered by provider .} Volume: 5 ml; Route: Infiltration; 14:37 Drug: Rocephin - Rocephin (cefTRIAXone) IVPB 2 grams IVPB once over 30 mins; (mix in aa5 100 mL NS) Route: IVPB; Infused Over: 30 mins; Site: right forearm; 15:00 Follow up: Response: No adverse reaction aa5 15:07 Follow up: Response: No adverse reaction; IV Status: Completed infusion aa5 15:07 Drug: vancoMYCIN IVPB 1 grams IVPB once over 2 hrs Route: IVPB; Infused Over: 2 hrs; aa5 Site: right forearm; 15:15 Follow up: Response: No adverse reaction aa5 15:16 Follow up: IV Status: Infusion continued upon admission ap3 Medication: 14:22 VIS not applicable for this client. ap3 Outcome: 14:24 Decision to Hospitalize by Provider. rt 15:15 Admitted to Med/surg accompanied by nurse, via wheelchair, room 225, with chart, ap3 15:15 Condition: good 15:15 Instructed on the need for admit, 15:16 Patient left the ED. ap3 Signatures: Sari Vasques, RN RN aa5 Debbie Perez RN Erinn Marshall ph rg4 Libia Mary RN RN ap3 Kwaku Gonzalez RN RN as6 Liu Jimenez MD MD rt Corrections: (The following items were deleted from the chart) 14:16 14:14 Reassessment: Left lower leg dressed with gauze and mihir bandage for pressure aa5 dressing per VO. . aa5
--- NOTE | 2023-07-09 14:25 | EDPHYS ---
Physician Documentation [facility] Name: Jayson Pennington Age: 58 yrs Sex: Male : 1965 Arrival Date: 07/09/2023 Time: 12:31 Bed 7 Private MD: Jono Marquis E ED Physician Liu Jimenez HPI: 07/09 15:25 This 58 yrs old Male presents to ER via Ambulatory with complaints of Leg Infection. rt 15:25 Patient presents to the ED with infection to the left lower extremity. Patient has been rt on Bactrim, clindamycin since yesterday. States that the symptoms have not improved, states that he was told to come to the ED by his primary care at 24 hours of the symptoms were not better. Does report swelling to the area. Reports chills, malaise. Denies other acute complaints, symptoms are moderate severity, no other aggravating alleviating factors.. Historical: - Allergies: 12:46 No Known Allergies; ph - Home Meds: 14:20 Xarelto 20 mg oral tablet once [Active]; fenofibrate 150 mg oral capsule once [Active]; aa5 pravastatin oral [Active]; Bactrim DS 800-160 mg Oral tablet 2 times per day [Active]; clindamycin HCl 300 mg Oral capsule 2 times per day [Active]; - PMHx: 14:19 Atrial fibrillation; Bradycardia; Hypercholesterolemia; aa5 - PSHx: 12:46 pacemaker; ph - Immunization history:: Adult Immunizations up to date. - Social history:: Smoking status: Patient denies any tobacco usage or history of. - Family history:: not pertinent. ROS: 15:25 Constitutional: Negative for fever, chills, and weight loss, Cardiovascular: Negative rt for chest pain, palpitations, and edema, Respiratory: Negative for shortness of breath, cough, wheezing, and pleuritic chest pain, Abdomen/GI: Negative for abdominal pain, nausea, vomiting, diarrhea, and constipation, Neuro: Negative for headache, weakness, numbness, tingling, and seizure, Psych: Negative for depression, anxiety, suicide ideation, homicidal ideation, and hallucinations, 15:25 : 15:25 MS/extremity: Positive for erythema, pain, swelling, 15:25 Skin: Positive for cellulitis, Exam: 15:12 ECG was reviewed by the Attending Physician. rt 15:25 Constitutional: This is a well developed, well nourished patient who is awake, alert, rt and in no acute distress. Head/Face: Normocephalic, atraumatic. Chest/axilla: Normal chest wall appearance and motion. Nontender with no deformity. No lesions are appreciated. Cardiovascular: Regular rate and rhythm with a normal S1 and S2. No gallops, murmurs, or rubs. Normal PMI, no JVD. No pulse deficits. Respiratory: Lungs have equal breath sounds bilaterally, clear to auscultation and percussion. No rales, rhonchi or wheezes noted. No increased work of breathing, no retractions or nasal flaring. Abdomen/GI: Soft, non-tender, with normal bowel sounds. No distension or tympany. No guarding or rebound. No evidence of tenderness throughout. Neuro: Awake and alert, GCS 15, oriented to person, place, time, and situation. Cranial nerves II-XII grossly intact. Motor strength 5/5 in all extremities. Sensory grossly intact. Cerebellar exam normal. Normal gait. Psych: Awake, alert, with orientation to person, place and time. Behavior, mood, and affect are within normal limits. 15:25 Musculoskeletal/extremity: Erythema noted from the left proximal aiken distally, there is an area of fluctuance, swelling, tenderness to the proximal aiken. Vital Signs: 12:43 BP 143 / 87; Pulse 89; Resp 18 S; Temp 98.3(O); Pulse Ox 99% on R/A; Weight 122.47 kg ph (R); Height 6 ft. 3 in. (R); Pain 0/10; 14:22 BP 113 / 73; Pulse 62; Pulse Ox 97% on R/A; ap3 12:43 Body Mass Index 33.75 (122.47 kg, 190.5 cm) ph 12:43 Pain Scale: Adult ph Procedures: 15:25 I \T\ D: Incision and drainage was performed for an abscess of the left left leg Prepped rt with alcohol, Anesthetized with 2 ml's 1% Lidocaine. Incised with #11 blade. Drained moderate amount bloody fluid. Dressing: sterile 4x4 gauze. MDM: 12:49 Patient medically screened. rt 15:25 Differential Diagnosis Cellulitis, abscess, hematoma. Data reviewed: vital signs, rt nurses notes, lab test result(s), EKG. Consideration of Admission/Observation Patient was admitted/placed on observation. Management of patient was discussed with the following: Innersole Maker: Discussed with general surgery on-call, will admit patient, request medicine consultation for medical management. I considered the following discharge prescriptions or medication management in the emergency department Medications were administered in the Emergency Department. See MAR. Test considered but Not performed: CT: Do not suspect necrotizing fasciitis, CT scan not indicated. Care significantly affected by the following chronic conditions: Atrial fibrillation. Counseling: I had a detailed discussion with the patient and/or guardian regarding the historical points, exam findings, and any diagnostic results supporting the discharge/admit diagnosis, lab results, the need for further work-up and treatment in the hospital. Response to treatment: the patient's symptoms have mildly improved after treatment. ED course: Initially, was thought to be an abscess overlying the patient's left anterior aiken, there was surrounding erythema, the wound was incised, drained with Yankauer, moderate size hematoma was evacuated. Patient was reassessed, has continued oozing from the wound. Was dressed, pressure was placed. Patient remained hemodynamically stable, labs are benign. Will admit patient for observation to make sure that the bleeding stops and to ensure H\T\H stays stable. 07/09 12:55 Order name: Blood Culture Adult (2) rt 07/09 12:55 Order name: CBC with Diff; Complete Time: 13:49 rt 07/09 12:55 Order name: CMP; Complete Time: 13:49 rt 07/09 12:55 Order name: Lactate w/ 2H reflex if indic.; Complete Time: 14:00 rt 07/09 12:55 Order name: Protime (+inr); Complete Time: 13:49 rt 07/09 12:55 Order name: Ptt, Activated; Complete Time: 13:49 rt 07/09 12:55 Order name: EKG; Complete Time: 12:55 rt 07/09 12:55 Order name: Cardiac monitoring; Complete Time: 13:16 rt 07/09 12:55 Order name: EKG - Nurse/Tech; Complete Time: 13:16 rt 07/09 12:55 Order name: IV Saline Lock - Large Bore; Complete Time: 13:19 rt 07/09 12:55 Order name: Labs collected and sent; Complete Time: 13:19 rt 07/09 12:55 Order name: O2 Per Protocol; Complete Time: 13:16 rt 07/09 12:55 Order name: O2 Sat Monitoring; Complete Time: 13:16 rt 07/09 12:55 Order name: Vital Signs; Complete Time: 13:04 rt 07/09 13:20 Order name: I\T\D Setup; Complete Time: 13:22 rt EC:12 Rate is 78 beats/min. Rhythm is irregularly irregular, A fib with No ectopy. QRS [place] rt is Normal. QRS interval is normal. QT interval is normal. No Q waves. No ST changes noted. Administered Medications: 13:27 Drug: Ondansetron IVP 4 mg IVP once; over 2 minutes Route: IVP; Site: right antecubital;ap3 14:00 Follow up: Response: No adverse reaction aa5 13:28 Drug: morphine IVP or IV 4 mg IVP once over 4 mins Route: IVP; Infused Over: 4 mins; ap3 Site: right antecubital; 14:00 Follow up: Response: No adverse reaction aa5 13:39 Drug: Lidocaine Infiltration (1 %) 5 ml 5 ml Infiltration once; to bedside {Note: as6 administered by provider .} Volume: 5 ml; Route: Infiltration; 14:37 Drug: Rocephin - Rocephin (cefTRIAXone) IVPB 2 grams IVPB once over 30 mins; (mix in aa5 100 mL NS) Route: IVPB; Infused Over: 30 mins; Site: right forearm; 15:00 Follow up: Response: No adverse reaction aa5 15:07 Follow up: Response: No adverse reaction; IV Status: Completed infusion aa5 15:07 Drug: vancoMYCIN IVPB 1 grams IVPB once over 2 hrs Route: IVPB; Infused Over: 2 hrs; aa5 Site: right forearm; 15:15 Follow up: Response: No adverse reaction aa5 15:16 Follow up: IV Status: Infusion continued upon admission ap3 Disposition Summary: 07/09/23 14:24 Hospitalization Ordered Notes: Hospitalization Status: Observation rt Provider: Vignesh Thomas rt Location: Telemetry/MedSur (observation) rt Condition: Stable rt Problem: new rt Symptoms: are unchanged rt Bed/Room Type: Standard rt Room Assignment: 225(07/09/23 14:58) eb Diagnosis - Cellulitis left lower extremity rt - Hematoma to left lower extremity rt Forms: - Medication Reconciliation Form rt - SBAR form rt - Leadership Thank You Letter rt Signatures: Dispatcher [employer] Sari Oreilly, RN RN aa5 Debbei Perez RN RN Libia Parikh RN RN ap3 Alysha Duarte Ashby, RN RN as6 Liu Jimenez MD MD rt Corrections: (The following items were deleted from the chart) 13:19 12:55 Accucheck ordered. rt aa5 14:58 14:24 rt eb
[2023-07-09] MEDS ORDERED: NA CHLORIDE 0.9% 250 ML ONE (14:29)
[2023-07-09] MEDS ORDERED: CEFTRIAXONE 1000 MG/VIAL ONE ×2 (14:29→14:30)
[2023-07-09] MEDS ORDERED: VANCOMYCIN 1 GM/VIAL ONE (14:29)
[2023-07-09] MEDS ORDERED: NA CHLORIDE 0.9% 100 ML ONE (14:30)
--- NOTE | 2023-07-09 14:46 | P.CNS ---
Date of Consult: 07/09/23 Chief Complaint: Infected LLE History of Present Illness: Jayson Pennington is a 58-year-old male with past medical history of A-fib on Xarelto, bradycardia (pacemaker), and hypercholesterolemia, who presents to the ED complaining of infection to left lower extremity. Reports his leg was injured when cutting limbs, one limb hit him in the leg which started the swelling. He reports seeing his doctor and starting Bactrim yesterday which has not helped. Incision and drainage performed by Dr. Jimenez in the ED resulting with hematoma removal, now with some continued bleeding, pressure dressing C/D/I. Jayson is being admitted to Dr. Thomas who requested hospital medicine consult for medical management. Initial vitals BP 143 / 87, Pulse 89 Resp 18, Temp 98.3(O), Pulse Ox 99% on R/A. Laboratory evaluation PT/INR 90.9/1.84, APTT 47.4 on Xarelto, H&H 13.5/40.1, platelets 244 sodium 139, potassium 3.9, BUN/creatinine 13/1.42, serum glucose 124, lactic acid 1.3. Allergies No Known Allergies Allergy (Verified 07/09/23 14:47) - Past Medical/Surgical History -: Afib -: pacemaker -: bradycardia -: GERD -: HLD -: pacemaker - Social History Smoking Status: Never smoker Alcohol use: No CD- Drugs: No Caffeine use: Yes Review of Systems General: Chills Gastrointestinal: Diarrhea (while taking bactrim) Physical Examination General: Alert, In no apparent distress, Oriented x3 HEENT: Atraumatic, Normocephalic, PERRLA Neck: Supple, 2+ carotid pulse no bruit, JVD not distended Respiratory: Clear to auscultation bilaterally, Normal air movement Cardiovascular: Normal pulses, Normal S1 S2, Irregular heart rate/rhythm (bradycardic) Capillary refill: <2 Seconds Gastrointestinal: Normal bowel sounds, Soft and benign Musculoskeletal: Swelling (LLE), Erythema (LLE), Warmth (LLE), Other (2+ peripheral pulses) Integumentary: Other Laboratory Data (last 24 hrs) 07/09/23 07/09/23 07/09/23 13:08 13:08 13:08 WBC 8.80 Hgb 13.5 L Hct 40.1 Plt Count 244 PT 19.9 H INR 1.84 APTT 47.4 H Sodium 139 Potassium 3.9 BUN 16 Creatinine 1.42 H Glucose 124 H Total Bilirubin 0.6 AST 33 ALT 58 Alkaline Phosphatase 72 Conclusions/Impression: Assessment and plan Atrial fibrillation Bradycardia with pacemaker On Xarelto, last dose taken 07/09/23 at 8 AM, hold today Telemetry Left Lower Leg Cellulitis On Xarelto, monitor for bleeding Monitor H&H Elevate on pillow Dr. Bonilla primary HLD Continue home dose fenofibrate and pravastatin GERD Tums as needed DVT ppx SCD to Right leg for now FUll code Time Spent Managing Pts care (In Minutes): 35
[2023-07-09 16:34] VITALS: O2SAT 97
[2023-07-09 16:50] LABS: Hematocrit 37.6 % (39.6-49.0); MCV 87.7 fL (80-100); Platelets 226 thou/uL (152-406); RBC Red Blood Cell Count 4.29 M/uL (4.33-5.43)
--- NOTE | 2023-07-09 16:50 | P.HP ---
Date of Service: 07/09/23 PC: This 58-year-old male presented to the emergency room with pain and swelling in his left leg with redness and streaking from his foot for evaluation and treatment. HPC: Patient apparently was out in the yard, working on some tree branches. 1 snapped back and hit him with considerable force on the left leg. At that time he had initial swelling and discomfort. However he noticed over the last few days it is leg has been getting more tender. He saw a physician and started on antibiotics, but today the pain and discomfort increased as well as the redness. He underwent an incision, drainage, of the abscess in the emergency room. PSHx: NAD PMHx: Pacemaker, atrial fibrillation, on Xarelto Social Hx: On Xarelto Sys R: No cough, wheeze, shortness of breath. No chest pain or palpitations. Leg feels better since he underwent the incision and drainage in the ER. O/E: Awake alert vital signs are stable HEENT: Not jaundiced Chest: Air entry equal bilaterally Abd: NAD [place]: Patient has an Jeffery bandage over the area that was incised and drained in the ER applying pressure to the area Data: NAD Impression: This patient, who is on Xarelto received a significant blow to his calf area. He developed a hematoma. Subsequently it appears that the hematoma has become infected and he presented for incision and drainage. The procedure went well, but the patient most likely due to his blood thinners had a considerable amount of oozing afterwards. Plan: We will admit this patient at this time for observation pain control and some IV antibiotics. We will do dressing changes and observe the wound. Hopefully the bleeding will subside with conservative measures, and we will be able to avoid surgical intervention. I explained this to the patient, he is aware, we will be keeping his leg elevated, IV antibiotics, and pain medicine. Will make him n.p.o. so we can evaluate him in the morning. He understands and wants us to proceed.
[2023-07-09 17:12] VITALS: BMI 33.7
[2023-07-09] MEDS ORDERED: CALCIUM CARBONATE CHEW 500MG TAB PO PRN (17:56)
[2023-07-09] MEDS ORDERED: METOPROLOL TARTRATE 5 MG/5 ML INJ IV PRN (17:57)
[2023-07-09 18:44] LABS: Specific Gravity 1.017 (1.005-1.030); Urine Bilirubin NEGATIVE (Negative); Urine Blood Negative (Negative); Urine Clarity Clear (Clear); Urine Color Light-Yellow (Yellow); Urine Glucose NEGATIVE (Negative); Urine Protein NEGATIVE (Negative); Urine Urobilinogen 1+ (Normal)
[2023-07-10] MEDS ORDERED: CLINDAMYCIN INJ 600 MG in NA CHLORIDE 0.9% 50 ML IV SCH (01:00)
[2023-07-10] MEDS ORDERED: CLINDAMYCIN 600MG/D5W 50 ML IV ONE (01:27)
[2023-07-10] MEDS: CLINDAMYCIN 600MG/D5W 50 ML IV SCH ×2 (01:53→08:59)
[2023-07-10 03:59] LABS: Absolute Lymphocytes (CBC) 1.6 K/uL (0.7-4.9); Lymphocytes % 17.4 % (15.3-44.8); MCV 87.2 fL (80-100); MPV 9.5 fL (7.6-11.3); Platelets 243 thou/uL (152-406); RBC Red Blood Cell Count 4.13 M/uL (4.33-5.43)
[2023-07-10 04:07] LABS: Albumin 2.7 g/dL (3.4-5.0); Bilirubin Total 0.5 mg/dL (0.2-1.0); Potassium 4.2 mEq/L (3.5-5.1); Protein, Total 6.8 g/dL (6.4-8.2)
[2023-07-10 13:04] VITALS: BP 126/85; TEMP 98.7
--- NOTE | 2023-07-10 13:13 | P.PN ---
Date of Service: 07/10/23 Consult Progress Note Subjective Irritable this morning, awake alert and oriented x 3 Reports bandage being changed several times over the night. Last time is at 9 PM, Surgicel was applied. Currently left lower extremity with bandage is clean dry and intact, erythema still present, 1+ edema Peripheral pulses 2+ bilaterally Expected to discharge today per Dr. Thomas ROS 10 point ROS as noted above, otherwise negative Physical Examination General: AAO x3, NAD HEENT: Atraumatic, Normocephalic, PERRLA Neck: Supple, 2+ carotid pulse no bruit, JVD not distended Respiratory: Clear to auscultation bilaterally, Normal air movement Cardiovascular: Normal pulses, Normal S1 S2, Regular heart rate/rhythm Capillary refill: <2 Seconds Gastrointestinal: Normal bowel sounds, Soft and benign Musculoskeletal: Swelling (LLE), Erythema (LLE), Warmth (LLE), 1+ edema (LLE), ABD and [place] C/D/I, Other (2+ peripheral pulses) Integumentary: LLE erythema, incision for drainage to LLE Neurological: normal affect Vitals Reviewed Problem list Left Lower Leg Cellulitis Atrial fibrillation Bradycardia with pacemaker GERD HLD Assessment and Plan Atrial fibrillation Bradycardia with pacemaker On Xarelto, last dose taken 07/09/23 at 8 AM, hold today Telemetry Left Lower Leg Cellulitis home medication Xarelto, on hold, monitor for bleeding Monitor H&H- stable Elevated on pillow continue Clindamycin Dr. Bonilla primary HLD Continue home dose fenofibrate and pravastatin GERD Tums as needed DVT ppx SCD to Right leg for now FUll code
--- NOTE | 2023-07-10 13:35 | P.PN ---
Date of Service: 07/10/23 S: Patient feels well today, leg feels much better. Anxious to eat. O: Dressing taken down, Surgicel removed, no further bleeding from incision. A: Wound site clean and dry, erythema is gone. P: This patient, who had an incision and drainage of a hematoma in the emergency room with some bleeding afterwards was admitted for IV antibiotics, and wound care. Today the wound is clean, he is feeling much better, his legs have responded well to IV antibiotics. He no longer requires any surgical intervention. He may be discharged when meets medical criteria thank you
--- NOTE | 2023-07-10 14:52 | P.DS ---
Admission Date: 07/09/23 Discharge Date: 07/10/23 Disposition: ROUTINE DISCHARGE Discharge Condition: GOOD Reason for Admission: Hematoma of the left lower extremity Procedures: Incision, drainage of hematoma in the emergency room Brief History of Present Illness: This patient, was struck by a limb that he was cutting at his home about 3 weeks ago. Had immediate pain and swelling in that area. Over the course the last few weeks the hematoma has continued to get bigger and causing increasing pain. Hospital Course: The patient was evaluated in the emergency room. It was found a large hematoma in that area. A small skin incision was made to evacuate the hematoma. Evacuation of the hematoma was successful, however the patient is on Xarelto and had continuous oozing coming from the wound. The patient was admitted for observation and surgical consultation. The wound was packed and dressed. Over the last 12 hours, the bleeding appears to be controlled. He is deemed fit for discharge. Vital Signs/Physical Exam: Temp Pulse Resp BP Pulse Ox 98.7 F 76 16 126/85 97 07/10/23 12:00 07/10/23 12:00 07/10/23 12:00 07/10/23 12:00 07/10/23 12:00 Laboratory Data at Discharge: WBC 9.20 thou/uL (4.3-10.9) 07/10/23 02:57 Hgb 12.0 g/dL (13.6-17.9) L 07/10/23 02:57 Hct 36.0 % (39.6-49.0) L 07/10/23 02:57 Plt Count 243 thou/uL (152-406) 07/10/23 02:57 PT 19.9 SECONDS (9.5-12.5) H 07/09/23 13:08 INR 1.84 07/09/23 13:08 APTT 47.4 SECONDS (24.3-36.9) H 07/09/23 13:08 Sodium 136 mEq/L (136-145) 07/10/23 02:57 Potassium 4.2 mEq/L (3.5-5.1) 07/10/23 02:57 BUN 16 mg/dL (7-18) 07/10/23 02:57 Creatinine 1.22 mg/dL (0.70-1.30) 07/10/23 02:57 Glucose 107 mg/dL (74-106) H 07/10/23 02:57 Total Bilirubin 0.5 mg/dL (0.2-1.0) 07/10/23 02:57 AST 26 U/L (15-37) 07/10/23 02:57 ALT 47 U/L (16-61) 07/10/23 02:57 Alkaline Phosphatase 68 U/L (45-117) 07/10/23 02:57 Home Medications: Fenofibrate [Tricor] 145 mg PO DAILY 07/09/23 Pravastatin [Pravachol] 40 mg PO DAILY 07/09/23 Rivaroxaban [Xarelto] 20 mg PO DAILY 07/09/23 Sulfamethoxazole/Trimethoprim [Bactrim 400-80 mg Tablet] 800 mg PO BID 07/09/23 clindamycin HCL [Clindamycin HCl] 300 mg PO BID 07/09/23 Diet: Regular Activity: Ad michael Followup: Vignesh Thomas MD [Primary Care Provider] -
== END 2023-07-10 15:45 | disposition home or self-care (01) ==
LOC: SUPCPDRO 12:31 → ER 12:31 → ERHOLD 14:28 → 2ND 15:09
PROVIDERS: ADMIT Surgery; ATTEND Surgery
PROC: 0J9P0ZZ Drainage of Left Lower Leg Subcutaneous Tissue and Fascia, Open Approach (ICD-10-PCS; principal; 2023-07-09)
DX: L03.116 Cellulitis of left lower limb (principal); S80.12XA Contusion of left lower leg, initial encounter; W20.8XXA Other cause of strike by thrown, projected or falling object, initial encounter; Y93.89 Activity, other specified; Y92.017 Garden or yard in single-family (private) house as the place of occurrence of the external cause; I48.11 Longstanding persistent atrial fibrillation; R00.1 Bradycardia, unspecified; E78.5 Hyperlipidemia, unspecified; K21.9 Gastro-esophageal reflux disease without esophagitis; E78.00 Pure hypercholesterolemia, unspecified; Z79.01 Long term (current) use of anticoagulants; Z95.0 Presence of cardiac pacemaker
CPT/HCPCS: 87040 ×2; 85025 ×2; 36415; 85610; 83605; 85730; 81003; 85027; 80053 ×2; 10140; J2001; J2405; J7050; J0696 ×2; 93005; G0378